=== PATIENT | female | born 1985 | race Caucasian/White ===

== ENCOUNTER 2020-08-29 13:39 | Emergency (ER) | payer BC ==
[2020-08-29 15:20] LABS: HEMOGLOBIN 14.6 gm/dl (12.3-15.3); RED BLOOD COUNT 4.9 M/UL (4.00-5.10); WHITE BLOOD COUNT 6.7 K/UL (4.5-11.0)
[2020-08-29 16:01] LABS: BUN/CREATININE RATIO 17 (0-10)
[2020-08-29] MEDS ORDERED: PROVERA 10 MG T10 MG GT (16:06)
[2020-09-15] MEDS ORDERED: COLACE100 MG PO (13:40)
[2020-09-15] MEDS ORDERED: IBUPROFEN800 MG PO (13:40)
[2020-09-15] MEDS ORDERED: HYDROCODON-ACE1 EAC4 PO (13:40)
== END 2020-08-29 17:25 | disposition home or self-care (01) ==
LOC: ER1 13:39
PROVIDERS: Family Medicine
DX: N93.9 Abnormal uterine and vaginal bleeding, unspecified (principal)
CPT/HCPCS: 80053; 85025; 85610; 86900; 86901; 99284

== ENCOUNTER → 2020-09-15 | Day surgery (SDC) | payer BC ==
[~2020-09-15] MED LIST: COLACE100 MG PO; HYDROCODON-ACE1 EAC4 PO; IBUPROFEN800 MG PO; PROVERA 10 MG T10 MG GT
[2020-09-15 09:33] LABS: HEMOGLOBIN 14.3 gm/dl (12.3-15.3); RED BLOOD COUNT 4.62 M/UL (4.00-5.10); WHITE BLOOD COUNT 6.3 K/UL (4.5-11.0)
== END | disposition home or self-care (01) ==
LOC: OR 04:05
PROVIDERS: Obstetrics & Gynecology
DX: N93.9 Abnormal uterine and vaginal bleeding, unspecified (principal)
CPT/HCPCS: 36415; 81001; 85025; J0690; J1100; J1885; J2250; J2405; J2704; J3010; J7120

== ENCOUNTER 2021-07-21 03:14 | Emergency (ER) | payer BC ==
[2021-07-21 04:31] LABS: HEMOGLOBIN 14.5 gm/dl (12.3-15.3); RED BLOOD COUNT 4.75 M/UL (4.00-5.10); WHITE BLOOD COUNT 8.6 K/UL (4.5-11.0)
[2021-07-21 04:59] LABS: BUN/CREATININE RATIO 17 (0-10)
== END 2021-07-21 07:00 | disposition home or self-care (01) ==
LOC: ER1 03:14
PROVIDERS: Student in an Organized Health Care Education/Training Program
DX: R10.9 Unspecified abdominal pain (principal)
CPT/HCPCS: 80053; 81001; 83690; 84703; 85025; 99284